=== PATIENT | female | born 1950 | race Caucasian/White ===

== ENCOUNTER → 2021-08-25 | Outpatient (CLI) | payer MEDICARE, OTHER ==
[~2021-08-25] VITALS: Ht 162.6 cm; Wt 88.5 kg
[~2021-08-25] MED LIST: LODINE CAP 300300 MG PO
== END ==
LOC: EROP 10:54
DX: Z23 Encounter for immunization (principal); J98.4 Other disorders of lung; E11.9 Type 2 diabetes mellitus without complications; I10 Essential (primary) hypertension; U07.1 COVID-19
CPT/HCPCS: M0247; Q0247

== ENCOUNTER → 2021-12-16 | Outpatient (CLI) | payer MEDICARE, OTHER | LOC: KOH-I 10:28 | DX: J44.1 Chronic obstructive pulmonary disease with (acute) exacerbation (principal) | CPT/HCPCS: 71046 ==

== ENCOUNTER → 2021-12-21 | Outpatient (CLI) | payer MEDICARE, OTHER | LOC: ECHO 10:25 | DX: R22.43 Localized swelling, mass and lump, lower limb, bilateral (principal); R06.02 Shortness of breath | CPT/HCPCS: ECHO; 93306 ==

== ENCOUNTER → 2022-02-23 | Outpatient (CLI) | payer MEDICARE, OTHER | LOC: RT 15:27 | DX: R09.02 Hypoxemia (principal) | CPT/HCPCS: 36600; 82803 ==